=== PATIENT | male | born 1980 | race Caucasian/White ===

== ENCOUNTER 2017-03-17 12:39 | Emergency (ER) | payer OTHER ==
[2017-03-17] MEDS ORDERED: cloNIDine 0.1 MG Tab PO ONE ×2 (12:40→14:55)
[2017-03-17] MEDS ORDERED: Sodium Chloride 0.9% 1,000 ML IV ONE ×2 (12:41→13:52)
--- NOTE | 2017-03-17 12:46 | EDM.PDOC ---
ED HPI GENERAL MEDICAL PROBLEM - General Chief Complaint: Chest Pain Stated Complaint: CHEST PAIN Time Seen by Provider: 03/17/17 12:39 Source of Information: Reports: Patient, EMS, Family History Limitations: Reports: No Limitations - History of Present Illness INITIAL COMMENTS - FREE TEXT/NARRATIVE: 36 years old w m in prev heathy condition, was cleaning a floor at work and got suddenly sweaty, dizzy and experienced SS chest pain, non radiating. EMS was called. As per EMS, pt had ST elevations in inf leads, which were not seen on the ecg transferred to the ed. Pt received 324 mg of ASA JIGMAKER. As the patients arrived her in the ed, pt was chest pain free. He still experienced palpitations, no SOB, no Dizziness,no lightheadedness, N/V or any other acute medical issues. His BP was 184/94, his pulse was 130 BPM. ECG showed Sinustachycardia, no ST/T wave changes. pulse ox was 96% on RA. Onset: Today Onset Date: 03/17/17 Onset Time: 11:00 Duration: Minutes: Location: Reports: Chest Quality: Reports: Burning, Dull Severity: Moderate Improves with: Reports: Rest Worsens with: Reports: Movement Associated Symptoms: Reports: Chest Pain - Related Data Allergies Allergy/AdvReac Type Severity Reaction Status Date / Time Penicillins Allergy Cannot Verified 03/17/17 13:03 Remember Home Meds: Home Meds cloNIDine [Catapres] 0.1 mg PO Q12HR #10 tablet 03/17/17 [Rx] ED ROS GENERAL - Review of Systems Review Of Systems: See Below Constitutional: Reports: No Symptoms HEENT: Reports: No Symptoms Respiratory: Reports: No Symptoms Cardiovascular: Reports: Chest Pain (resolved JIGMAKER), Palpitations Endocrine: Reports: No Symptoms GI/Abdominal: Reports: No Symptoms : Reports: No Symptoms Musculoskeletal: Reports: No Symptoms Skin: Reports: No Symptoms Neurological: Reports: No Symptoms Psychiatric: Reports: No Symptoms Hematologic/Lymphatic: Reports: No Symptoms Immunologic: Reports: No Symptoms ED EXAM, GENERAL - Physical Exam Exam: See Below Exam Limited By: No Limitations General Appearance: Alert, WD/WN, Mild Distress Eye Exam: Bilateral Eye: Normal Inspection Ears: Normal External Exam Ear Exam: Bilateral Ear: Auricle Normal Nose: Normal Inspection, Normal Mucosa Throat/Mouth: Normal Inspection, Normal Lips Head: Atraumatic, Normocephalic Neck: Normal Inspection, Supple, Non-Tender, Full Range of Motion Respiratory/Chest: No Respiratory Distress, Lungs Clear, Normal Breath Sounds, Chest Non-Tender Cardiovascular: Tachycardia Peripheral Pulses: 1+: Radial (L), Radial (R) GI/Abdominal: Normal Bowel Sounds, Soft (Male) Exam: Deferred Rectal (Males) Exam: Deferred Back Exam: Normal Inspection, Full Range of Motion Extremities: Normal Inspection, Normal Range of Motion, Non-Tender, No Pedal Edema Neurological: Alert, Oriented, CN II-XII Intact, Normal Cognition, Normal Gait Psychiatric: Normal Affect, Normal Mood Skin Exam: Warm, Dry, Intact, Normal Color, No Rash Lymphatic: No Adenopathy EKG INTERPRETATION EKG Date: 03/17/17 Time: 12:40 Rhythm: NSR Rate (Beats/Min): 125 [place]: Normal P-Wave: Present QRS: Normal ST-T: Normal QT: Normal Comparison: NA - No Prior EKG Course - Vital Signs Text/Narrative:: 36 years old w m in prev heathy condition, was cleaning a floor at work and got suddenly sweaty, dizzy and experienced SS chest pain, non radiating. EMS was called. As per EMS, pt had ST elevations in inf leads, which were not seen on the ecg transferred to the ed. Pt received 324 mg of ASA JIGMAKER. As the patients arrived her in the ed, pt was chest pain free. He still experienced palpitations, no SOB, no Dizziness,no lightheadedness, N/V or any other acute medical issues. His BP was 184/94, his pulse was 130 BPM. ECG showed Sinustachycardia, no ST/T wave changes. pulse ox was 96% on RA. PE: WNWD WM, with palpitations, ST 130 Labs: WBC 10.3 HGB 16.3 TSH 0.68 BUN 20 Cr 0.8 UDS neg. Troponin 0.01 Na 137, K 3.8, BUN/CR 25.00 Impression: None indicated Impression: Sinus tachycardia, Dehydration, Hypertensive urgency. Tx: NS, Clonidine, Labetolol. Reexam: HR was 109 BP was 155/85 on D/C Plan: D/C with instructions 03/18/2017 1030: Pt came back for Vitals check: BP was 133/85 Pt will F/U with Dr. Núñez this week. Last Recorded V/S: Last Vital Signs Temp 37.3 C 03/17/17 13:04 Pulse 117 H 03/17/17 14:44 Resp 18 03/17/17 13:04 BP 168/92 H 03/17/17 15:10 Pulse Ox 99 03/17/17 13:04 - Orders/Labs/Meds Orders: Active Orders 24 hr Category Date Time Status EKG 12 Lead [EK] Routine Ther 03/17/17 12:41 Ordered Labs: Laboratory Tests 03/17/17 03/17/17 03/17/17 Range/Units 12:05 12:55 12:55 WBC 10.4 (4.5-12.0) X10-3/uL RBC 5.49 (4.30-5.75) x10(6)uL Hgb 16.3 H (11.5-15.5) g/dL Hct 47.6 (30.0-51.3) % MCV 86.7 (80-96) fL MCH 29.7 (27.7-33.6) pg MCHC 34.2 (32.2-35.4) g/dL RDW 13.1 (11.5-15.5) % Plt Count 252 (125-369) X10(3)uL MPV 7.3 L (7.4-10.4) fL Neut % (Auto) 84.1 H (46-82) % Lymph % (Auto) 8.0 L (13-37) % [place] % (Auto) 6.6 (4-12) % Eos % (Auto) 0 L (1.0-5.0) % Baso % (Auto) 1 (0-2) % Neut # (Auto) 8.8 H (1.6-8.3) # Lymph # (Auto) 0.8 (0.6-5.0) # [place] # (Auto) 0.7 (0.0-1.3) # Eos # (Auto) 0.0 (0.0-0.8) # Baso # (Auto) 0.1 (0.0-0.2) # D-Dimer, Quantitative (100-400) ng/mL Sodium 137 (135-145) mmol/L Potassium 3.8 (3.5-5.3) mmol/L Chloride 106 (100-110) mmol/L Carbon Dioxide 23 (23-29) mmol/L BUN 20 (5-20) mg/dL Creatinine 0.8 (0.6-1.3) mg/dL Est Cr Clr Drug Dosing TNP Estimated GFR (MDRD) > 60 (>60) BUN/Creatinine Ratio 25.0 H (9-20) Glucose 113 (80-116) mg/dL Calcium 9.6 (8.6-10.2) mg/dL Troponin I (0.02-0.06) NG/ML TSH, Ultra Sensitive 0.68 (0.4-5.5) nlU/mL Urine Color (YELLOW) Urine Appearance (CLEAR) Urine pH (5.0-6.5) Ur Specific [place] (1.010-1.025) Urine Protein (NEGATIVE) mg/dL Urine Glucose (UA) (NEGATIVE) mg/dL Urine Ketones (NEGATIVE) mg/dL Urine Occult Blood (NEGATIVE) Urine Nitrite (NEGATIVE) Urine Bilirubin (NEGATIVE) Urine Urobilinogen (NEGATIVE) mg/dL Ur Leukocyte Esterase (NEGATIVE) Urine WBC (0) Ur Squamous Epith Cells (NS,R,O) Urine Bacteria (NS) Urine Opiates Screen (NEGATIVE) Ur Oxycodone Screen (NEGATIVE) Ur Propoxyphene Screen (NEGATIVE) Ur Barbituates Screen (NEGATIVE) Ur Tricyclics Screen (NEGATIVE) Ur Phencyclidine Scrn (NEGATIVE) Ur Amphetamine Screen (NEGATIVE) Urine MDMA Screen (NEGATIVE) U Benzodiazepines Scrn (NEGATIVE) U Cocaine Metab Screen (NEGATIVE) U Marijuana (THC) Screen (NEGATIVE) Ethyl Alcohol (<0.01) % 03/17/17 03/17/17 03/17/17 Range/Units 12:55 12:55 12:55 WBC (4.5-12.0) X10-3/uL RBC (4.30-5.75) x10(6)uL Hgb (11.5-15.5) g/dL Hct (30.0-51.3) % MCV (80-96) fL MCH (27.7-33.6) pg MCHC (32.2-35.4) g/dL RDW (11.5-15.5) % Plt Count (125-369) X10(3)uL MPV (7.4-10.4) fL Neut % (Auto) (46-82) % Lymph % (Auto) (13-37) % [place] % (Auto) (4-12) % Eos % (Auto) (1.0-5.0) % Baso % (Auto) (0-2) % Neut # (Auto) (1.6-8.3) # Lymph # (Auto) (0.6-5.0) # [place] # (Auto) (0.0-1.3) # Eos # (Auto) (0.0-0.8) # Baso # (Auto) (0.0-0.2) # D-Dimer, Quantitative 355 (100-400) ng/mL Sodium (135-145) mmol/L Potassium (3.5-5.3) mmol/L Chloride (100-110) mmol/L Carbon Dioxide (23-29) mmol/L BUN (5-20) mg/dL Creatinine (0.6-1.3) mg/dL Est Cr Clr Drug Dosing Estimated GFR (MDRD) (>60) BUN/Creatinine Ratio (9-20) Glucose (80-116) mg/dL Calcium (8.6-10.2) mg/dL Troponin I < 0.01 L (0.02-0.06) NG/ML TSH, Ultra Sensitive (0.4-5.5) nlU/mL Urine Color (YELLOW) Urine Appearance (CLEAR) Urine pH (5.0-6.5) Ur Specific [place] (1.010-1.025) Urine Protein (NEGATIVE) mg/dL Urine Glucose (UA) (NEGATIVE) mg/dL Urine Ketones (NEGATIVE) mg/dL Urine Occult Blood (NEGATIVE) Urine Nitrite (NEGATIVE) Urine Bilirubin (NEGATIVE) Urine Urobilinogen (NEGATIVE) mg/dL Ur Leukocyte Esterase (NEGATIVE) Urine WBC (0) Ur Squamous Epith Cells (NS,R,O) Urine Bacteria (NS) Urine Opiates Screen (NEGATIVE) Ur Oxycodone Screen (NEGATIVE) Ur Propoxyphene Screen (NEGATIVE) Ur Barbituates Screen (NEGATIVE) Ur Tricyclics Screen (NEGATIVE) Ur Phencyclidine Scrn (NEGATIVE) Ur Amphetamine Screen (NEGATIVE) Urine MDMA Screen (NEGATIVE) U Benzodiazepines Scrn (NEGATIVE) U Cocaine Metab Screen (NEGATIVE) U Marijuana (THC) Screen (NEGATIVE) Ethyl Alcohol < 0.01 (<0.01) % 03/17/17 03/17/17 Range/Units 13:35 13:35 WBC (4.5-12.0) X10-3/uL RBC (4.30-5.75) x10(6)uL Hgb (11.5-15.5) g/dL Hct (30.0-51.3) % MCV (80-96) fL MCH (27.7-33.6) pg MCHC (32.2-35.4) g/dL RDW (11.5-15.5) % Plt Count (125-369) X10(3)uL MPV (7.4-10.4) fL Neut % (Auto) (46-82) % Lymph % (Auto) (13-37) % [place] % (Auto) (4-12) % Eos % (Auto) (1.0-5.0) % Baso % (Auto) (0-2) % Neut # (Auto) (1.6-8.3) # Lymph # (Auto) (0.6-5.0) # [place] # (Auto) (0.0-1.3) # Eos # (Auto) (0.0-0.8) # Baso # (Auto) (0.0-0.2) # D-Dimer, Quantitative (100-400) ng/mL Sodium (135-145) mmol/L Potassium (3.5-5.3) mmol/L Chloride (100-110) mmol/L Carbon Dioxide (23-29) mmol/L BUN (5-20) mg/dL Creatinine (0.6-1.3) mg/dL Est Cr Clr Drug Dosing Estimated GFR (MDRD) (>60) BUN/Creatinine Ratio (9-20) Glucose (80-116) mg/dL Calcium (8.6-10.2) mg/dL Troponin I (0.02-0.06) NG/ML TSH, Ultra Sensitive (0.4-5.5) nlU/mL Urine Color Yellow (YELLOW) Urine Appearance Clear (CLEAR) Urine pH 8.0 H (5.0-6.5) Ur Specific [place] 1.015 (1.010-1.025) Urine Protein Negative (NEGATIVE) mg/dL Urine Glucose (UA) Normal (NEGATIVE) mg/dL Urine Ketones Negative (NEGATIVE) mg/dL Urine Occult Blood Negative (NEGATIVE) Urine Nitrite Negative (NEGATIVE) Urine Bilirubin Negative (NEGATIVE) Urine Urobilinogen Normal (NEGATIVE) mg/dL Ur Leukocyte Esterase Negative (NEGATIVE) Urine WBC 0-5 (0) Ur Squamous Epith Cells Rare (NS,R,O) Urine Bacteria Few H (NS) Urine Opiates Screen Negative (NEGATIVE) Ur Oxycodone Screen Negative (NEGATIVE) Ur Propoxyphene Screen Negative (NEGATIVE) Ur Barbituates Screen Negative (NEGATIVE) Ur Tricyclics Screen Negative (NEGATIVE) Ur Phencyclidine Scrn Negative (NEGATIVE) Ur Amphetamine Screen Negative (NEGATIVE) Urine MDMA Screen Negative (NEGATIVE) U Benzodiazepines Scrn Negative (NEGATIVE) U Cocaine Metab Screen Negative (NEGATIVE) U Marijuana (THC) Screen Negative (NEGATIVE) Ethyl Alcohol (<0.01) % Meds: Medications Discontinued Medications Generic Name Dose Route Start Last Admin Trade Name Freq PRN Reason Stop Dose Admin Clonidine HCl 0.1 mg 03/17/17 14:55 03/17/17 15:10 Catapres PO 03/17/17 14:56 0.1 mg ONETIME ONE Administration Clonidine HCl Confirm 03/17/17 17:05 Catapres Administered 03/17/17 17:06 Dose 0.1 mg .ROUTE .STK-MED ONE Clonidine HCl 0.1 mg 03/17/17 12:40 Catapres PO 03/17/17 12:41 .STK-MED ONE Sodium Chloride 1,000 mls @ 999 mls/hr 03/17/17 12:41 03/17/17 13:03 Normal Saline IV 03/17/17 13:41 999 mls/hr .BOLUS ONE Administration Sodium Chloride 1,000 mls @ 999 mls/hr 03/17/17 13:52 03/17/17 14:00 Normal Saline IV 03/17/17 14:52 999 mls/hr .BOLUS ONE Administration Labetalol HCl 10 mg 03/17/17 15:47 03/17/17 15:57 Normodyne IVPUSH 03/17/17 15:48 10 mg ONETIME ONE Administration Protocol Labetalol HCl 10 mg 03/17/17 16:18 03/17/17 16:35 Normodyne IVPUSH 03/17/17 16:19 10 mg ONETIME ONE Administration Protocol Metoprolol Tartrate 2.5 mg 03/17/17 14:34 03/17/17 14:44 Lopressor IVPUSH 03/17/17 14:35 2.5 mg ONETIME ONE Administration Sodium Chloride 10 ml 03/17/17 15:58 03/17/17 16:30 Saline Flush FLUSH 10 ml ASDIRECTED PRN Administration Keep Vein Open Departure - Departure Time of Disposition: 16:53 Disposition: Home, Self-Care 01 Condition: Good Clinical Impression: Asymptomatic hypertensive urgency, Sinus tachycardia by electrocardiogram Prescriptions: cloNIDine [Catapres] 0.1 mg PO Q12HR #10 tablet Instructions: Hypertension Referrals: Hugo Amaral MD [Primary Care Provider] - Forms: ED Department Discharge Additional Instructions: Please f/u in am for BP and pulse recheck. Please take the meds as recommended, please come back to the ed if your symptoms get worse acutely. - My Orders Last 24 Hours: My Active Orders 03/17/17 12:41 EKG 12 Lead [EK] Routine - Assessment/Plan Last 24 Hours: My Active Orders 03/17/17 12:41 EKG 12 Lead [EK] Routine
[2017-03-17] MEDS ORDERED: Metoprolol Tartrate 5 MG/5 ML SDV IVPUSH ONE (14:34)
[2017-03-17 15:11] VITALS: BP 168/92
[2017-03-17] MEDS ORDERED: Labetalol 20 MG/4 ML Syringe IVPUSH ONE ×2 (15:47→16:18)
[2017-03-17] MEDS: Sodium Chloride 0.9% 10 ML Syringe FLUSH PRN ×2 (15:59→16:30)
[2017-03-17] MEDS ORDERED: cloNIDine 0.1 MG Tab ONE (17:05)
== END 2017-03-17 17:10 | disposition home or self-care (01) ==
LOC: FB.ED 12:39
DX: I16.0 Hypertensive urgency (principal); R00.0 Tachycardia, unspecified; Z88.0 Allergy status to penicillin
CPT/HCPCS: 36415; 80048; 80305; 81001; 84443; 84484; 85025; 85379; 93005; 96361; 96374; 96375; 96376; 99285; A9270; G0480; J7040; J7050; J3490

== ENCOUNTER 2018-04-16 12:14 | Emergency (ER) | payer OTHER ==
[2018-04-16] MEDS ORDERED: Aspirin 81 MG Tab.Chew PO ONE (12:38)
[2018-04-16] MEDS ORDERED: Sodium Chloride 0.9% 10 ML Syringe FLUSH PRN (12:38)
[2018-04-16] MEDS ORDERED: Metoprolol Tartrate 5 MG/5 ML SDV IVPUSH ONE (12:39)
--- NOTE | 2018-04-16 12:51 | EDM.PDOC ---
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 Denies SOB or nausea. Currently pain-free. No h/o CAD. Onset: Today Onset Date: 04/16/18 Onset Time: 11:15 Location: Reports: Chest Quality: Reports: Sharp Severity: Moderate Context: Reports: Activity Associated Symptoms: Reports: Chest Pain. Denies: Nausea/Vomiting, Shortness of Breath - Related Data Allergies Allergy/AdvReac Type Severity Reaction Status Date / Time Penicillins Allergy Cannot Verified 04/16/18 12:32 Remember Home Meds: Home Meds Losartan Potassium 50 mg PO DAILY 04/16/18 [History] Past Medical History Cardiovascular History: Reports: Hypertension. Denies: CAD, ID Social & Family History - Tobacco Use Smoking Status *Q: Never Smoker - Recreational Drug Use Recreational Drug Use: No ED ROS GENERAL - Review of Systems Review Of Systems: ROS reveals no pertinent complaints other than HPI. ED EXAM, GENERAL - Physical Exam Exam: See Below Exam Limited By: No Limitations General Appearance: Alert, WD/WN, No Apparent Distress Ears: Normal External Exam Nose: Normal Inspection Throat/Mouth: No Airway Compromise Head: Atraumatic, Normocephalic Neck: Full Range of Motion Respiratory/Chest: No Respiratory Distress, Lungs Clear, Normal Breath Sounds Cardiovascular: No Murmur, Tachycardia Back Exam: Full Range of Motion Extremities: Normal Range of Motion Neurological: Alert, No Motor/Sensory Deficits Psychiatric: Normal Affect, Normal Mood Skin Exam: Warm, Dry, Intact EKG INTERPRETATION EKG Date: 04/16/18 Time: 13:13 Rhythm: Other (sinus tachycardia) Rate (Beats/Min): 117 P-Wave: Present QRS: Other (borderline intraventricular conduction delay) ST-T: Depressed QT: Normal Comparison: Change From Previous EKG (03/17/17) Course - Vital Signs Last Recorded V/S: Last Vital Signs Temp 36.9 C 04/16/18 12:15 Pulse 106 H 04/16/18 12:48 Resp 17 04/16/18 12:15 BP 184/90 H 04/16/18 12:48 Pulse Ox 100 04/16/18 12:15 - Orders/Labs/Meds Orders: Active Orders 24 hr Category Date Time Status Chest 1V Frontal [CR] Stat Exams 04/16/18 12:37 Ordered Heparin Sodium/0.45% NaCl [Heparin 25,000 Units in 1/2 Med 04/16/18 13:15 Active NS 500 ML] 500 ml IV ASDIRECTED Sodium Chloride 0.9% [Saline Flush] Med 04/16/18 12:38 Active 10 ml FLUSH ASDIRECTED PRN Saline Lock Insert [OM.PC] Routine Oth 04/16/18 12:38 Ordered EKG 12 Lead [EK] Stat Ther 04/16/18 12:37 Ordered EKG 12 Lead [EK] Stat Ther 04/16/18 12:39 Ordered Medication Orders Heparin Sodium/Sodium Chloride (Heparin 25,000 Units In 12 Ns 500 Ml) 500 mls @ 20 mls/hr IV ASDIRECTED KATHLEEN; Protocol Sodium Chloride (Saline Flush) 10 ml FLUSH ASDIRECTED PRN PRN Reason: Keep Vein Open Labs: Laboratory Tests 04/16/18 04/16/18 04/16/18 Range/Units 12:50 12:50 12:50 WBC 9.2 (4.5-12.0) X10-3/uL RBC 4.87 (4.30-5.75) x10(6)uL Hgb 14.8 (11.5-15.5) g/dL Hct 42.3 (30.0-51.3) % MCV 86.8 (80-96) fL MCH 30.3 (27.7-33.6) pg MCHC 34.9 (32.2-35.4) g/dL RDW 13.0 (11.5-15.5) % Plt Count 308 (125-369) X10(3)uL MPV 6.6 L (7.4-10.4) fL Neut % (Auto) 69.2 (46-82) % Lymph % (Auto) 22.4 (13-37) % [place] % (Auto) 6.3 (4-12) % Eos % (Auto) 2 (1.0-5.0) % Baso % (Auto) 1 (0-2) % Neut # (Auto) 6.3 (1.6-8.3) # Lymph # (Auto) 2.0 (0.6-5.0) # [place] # (Auto) 0.6 (0.0-1.3) # Eos # (Auto) 0.1 (0.0-0.8) # Baso # (Auto) 0.1 (0.0-0.2) # PT 9.5 (8.7-11.1) INR 0.98 (0.89-1.13) APTT 23.4 L (24.4-33.2) SECONDS D-Dimer, Quantitative 0.47 (0.0-0.59) mg/LFEU Sodium 138 (135-145) mmol/L Potassium 3.5 (3.5-5.3) mmol/L Chloride 104 (100-110) mmol/L Carbon Dioxide 23 (21-32) mmol/L BUN 19 H (7-18) mg/dL Creatinine 1.0 (0.70-1.30) mg/dL Est Cr Clr Drug Dosing TNP Estimated GFR (MDRD) > 60 (>60) BUN/Creatinine Ratio 19.0 (9-20) Glucose 111 (80-116) mg/dL Calcium 8.6 (8.6-10.2) mg/dL Total Bilirubin 0.4 (0.1-1.3) mg/dL AST 19 (5-25) IU/L ALT 13 (12-36) U/L Alkaline Phosphatase 93 (56-112) IU/L Troponin I (<0.017-0.056) ng/mL Total Protein 8.2 H (6.0-8.0) g/dL Albumin 3.7 (3.5-5.2) g/dL Globulin 4.5 g/dL Albumin/Globulin Ratio 0.8 //18 Range/Units 12:50 WBC (4.5-12.0) X10-3/uL RBC (4.30-5.75) x10(6)uL Hgb (11.5-15.5) g/dL Hct (30.0-51.3) % MCV (80-96) fL MCH (27.7-33.6) pg MCHC (32.2-35.4) g/dL RDW (11.5-15.5) % Plt Count (125-369) X10(3)uL MPV (7.4-10.4) fL Neut % (Auto) (46-82) % Lymph % (Auto) (13-37) % [place] % (Auto) (4-12) % Eos % (Auto) (1.0-5.0) % Baso % (Auto) (0-2) % Neut # (Auto) (1.6-8.3) # Lymph # (Auto) (0.6-5.0) # [place] # (Auto) (0.0-1.3) # Eos # (Auto) (0.0-0.8) # Baso # (Auto) (0.0-0.2) # PT (8.7-11.1) INR (0.89-1.13) APTT (24.4-33.2) SECONDS D-Dimer, Quantitative (0.0-0.59) mg/LFEU Sodium (135-145) mmol/L Potassium (3.5-5.3) mmol/L Chloride (100-110) mmol/L Carbon Dioxide (21-32) mmol/L BUN (7-18) mg/dL Creatinine (0.70-1.30) mg/dL Est Cr Clr Drug Dosing Estimated GFR (MDRD) (>60) BUN/Creatinine Ratio (9-20) Glucose (80-116) mg/dL Calcium (8.6-10.2) mg/dL Total Bilirubin (0.1-1.3) mg/dL AST (5-25) IU/L ALT (12-36) U/L Alkaline Phosphatase (56-112) IU/L Troponin I < 0.017 L (<0.017-0.056) ng/mL Total Protein (6.0-8.0) g/dL Albumin (3.5-5.2) g/dL Globulin g/dL Albumin/Globulin Ratio Meds: Medications Generic Name Dose Route Start Last Admin Trade Name Freq PRN Reason Stop Dose Admin Heparin Sodium/Sodium Chloride 500 mls @ 20 mls/hr 04/16/18 13:15 Heparin 25,000 Units In 1/2 Ns 500 Ml IV ASDIRECTED KATHLEEN Protocol Sodium Chloride 10 ml 04/16/18 12:38 Saline Flush FLUSH ASDIRECTED PRN Keep Vein Open Discontinued Medications Generic Name Dose Route Start Last Admin Trade Name Alexi PRN Reason Stop Dose Admin Aspirin 324 mg 04/16/18 12:38 04/16/18 12:25 Aspirin PO 04/16/18 12:39 324 mg ONETIME ONE Administration Heparin Sodium (Porcine) 4,000 units 04/16/18 13:03 Heparin Sodium IVPUSH 04/16/18 13:04 ONETIME ONE Metoprolol Tartrate 5 mg 04/16/18 12:39 04/16/18 12:48 Lopressor IVPUSH 04/16/18 12:40 5 mg ONETIME ONE Administration Metoprolol Tartrate 25 mg 04/16/18 13:17 Lopressor PO 04/16/18 13:18 ONETIME ONE - Radiology Interpretation Free Text/Narrative:: CXR: NAD - Re-Assessments/Exams Free Text/Narrative Re-Assessment/Exam: 04/16/18 13:[address] Mackay ([facility]) who reviewed the patient's EKG. Recommends ASA, Heparin gtt, and Plavix or Brillinta if troponin is elevated. Dr. Broussard accepts patient for transfer to [facility]. BP 162/96 HR 110 after Lopressor 5mg IV. 04/16/18 13:27 Troponin and D-dimer are normal Departure - Departure Time of Disposition: 13:28 Disposition: DC/Tfer to Acute Hospital 02 Reason for Transfer *Q: Other Condition: Fair Clinical Impression: Non-STEMI (non-ST elevated myocardial infarction) Referrals: Hugo Amaral MD [Primary Care Provider] - Forms: ED Department Discharge - My Orders Last 24 Hours: My Active Orders 04/16/18 12:37 Chest 1V Frontal [CR] Stat EKG 12 Lead [EK] Stat 04/16/18 12:38 Sodium Chloride 0.9% [Saline Flush] 10 ml FLUSH ASDIRECTED PRN Saline Lock Insert [OM.PC] Routine 04/16/18 12:39 EKG 12 Lead [EK] Stat 04/16/18 13:15 Heparin Sodium/0.45% NaCl [Heparin 25,000 Units in 1/2 NS 500 ML] 500 ml IV ASDIRECTED - Assessment/Plan Last 24 Hours: My Active Orders 04/16/18 12:37 Chest 1V Frontal [CR] Stat EKG 12 Lead [EK] Stat 04/16/18 12:38 Sodium Chloride 0.9% [Saline Flush] 10 ml FLUSH ASDIRECTED PRN Saline Lock Insert [OM.PC] Routine 04/16/18 12:39 EKG 12 Lead [EK] Stat 04/16/18 13:15 Heparin Sodium/0.45% NaCl [Heparin 25,000 Units in 1/2 NS 500 ML] 500 ml IV ASDIRECTED
[2018-04-16] MEDS ORDERED: Heparin Sodium 5,000 Units/ML Vial IVPUSH ONE (13:03)
[2018-04-16] MEDS ORDERED: Heparin Sodium/0.45% NaCl 500 ML IV SCH (13:15)
[2018-04-16] MEDS ORDERED: Metoprolol Tartrate 25 MG Tab PO ONE (13:17)
[2018-04-16 13:33] VITALS: BP 176/101
--- NOTE | 2018-04-17 12:01 | CR ---
INDICATION: Chest pain for two hours. CHEST: An AP upright portable view of the chest was obtained 04/16/2018 - no comparisons. Heart, mediastinum, and bony thorax were unremarkable. An active infiltrate or effusion was not identified. Overlying EKG leads are noted. IMPRESSION: No active disease. MTDD
== END 2018-04-16 14:50 ==
LOC: FB.ED 12:14
DX: I21.4 Non-ST elevation (NSTEMI) myocardial infarction (principal); I10 Essential (primary) hypertension; Z88.0 Allergy status to penicillin
CPT/HCPCS: 36415; 71045; 80053; 84484; 85025; 85379; 85610; 85730; 93005; 96365; 96375; 99285; A9270-GY; J1644; J3490